=== PATIENT | male | born 1955 | race Caucasian/White ===

== ENCOUNTER 2022-07-08 09:19 | Outpatient (CLI) | payer MEDICARE, OTHER ==
[2022-07-08 10:34] LABS: #Eosinphils 0.1 10x3/uL (0.0-0.5); #Monocytes 0.4 10x3/uL (0.0-1.1); #Neutrophils 3.4 10x3/uL (1.5-8.4); %Basophils 0.2 % (0.0-2.0); %Eosinophils 1.1 % (0.0-6.0); %Lymphocytes 31.4 % (18.0-47.0); %Monocytes 7.4 % (0.0-10.0); %Neutrophils 59.7 % (40.0-75.0); Hemoglobin 13.9 g/dL (13.5-17.5); Mean Corpuscular HGB CONC 31.7 g/dL (32.0-36.0); Mean Corpuscular Hemoglobin 27.3 pg (27.0-33.0); Mean Corpuscular Volume 85.9 fl (81.2-95.1); Mean Platelet Volume 10.4 fl (7.4-10.4); Platelet Count 213 10x3/uL (150-450); RBC Distribution Width 11.9 % (11.5-14.5); White Blood Cell (WBC) Count 5.7 10x3/uL (3.5-10.5)
== END 2022-07-08 09:20 | disposition home or self-care (01) ==
LOC: LABBT 09:19
PROVIDERS: ATTEND Orthopaedic Surgery Hand Surgery
DX: Z01.818 Encounter for other preprocedural examination (principal); M72.0 Palmar fascial fibromatosis [Dupuytren]
CPT/HCPCS: 85025; 93005; 93010

== ENCOUNTER 2022-07-10 10:02 | Day surgery (SDC) | payer MEDICARE, OTHER ==
[2022-07-08 09:59] VITALS: BMI 24.3
[2022-07-10] MEDS ORDERED: Bacitracin Zinc Ointment 30 gm TUBE ONE (12:16)
[2022-07-10] MEDS ORDERED: Bupivacaine PF 0.5% 30 ML VIAL ONE (12:16)
[2022-07-10] MEDS ORDERED: CEFAZOLIN 2 GM VIAL ONE (13:41)
[2022-07-10] MEDS ORDERED: Sodium Chloride 0.9% 100 ML ONE (13:41)
[2022-07-10] MEDS ORDERED: fentaNYL PF 100 MCG/2 ML SYRINGE ONE (13:45)
[2022-07-10] MEDS ORDERED: Dexmedetomidine 200 MCG/2 ML VIAL ONE (13:45)
[2022-07-10] MEDS ORDERED: Ondansetron PF 4 MG/2 ML Vial ONE (14:00)
[2022-07-10] MEDS ORDERED: PROPOFOL 200 MG/20 ML VIAL ONE (14:00)
[2022-07-10] MEDS ORDERED: ePHEDrine Sulfate 50 MG/10 ML VIAL ONE (14:00)
[2022-07-10] MEDS ORDERED: Betamet Acet/Betamet Na Ph 30 MG/5 ML VIAL ONE (14:26)
[2022-07-10] MEDS ORDERED: Ketorolac Tromethamine 30 MG/ML VIAL ONE (15:38)
== END 2022-07-10 16:48 | disposition home or self-care (01) ==
LOC: SDC 10:02
PROVIDERS: ATTEND Orthopaedic Surgery Hand Surgery
PROC: 0JNK0ZZ Release Left Hand Subcutaneous Tissue and Fascia, Open Approach (ICD-10-PCS; principal; 2022-07-10)
DX: M72.0 Palmar fascial fibromatosis [Dupuytren] (principal); L91.8 Other hypertrophic disorders of the skin; E78.5 Hyperlipidemia, unspecified; K21.9 Gastro-esophageal reflux disease without esophagitis; Z87.891 Personal history of nicotine dependence; Z79.899 Other long term (current) drug therapy
CPT/HCPCS: 88304; J0702; J1885; J2405; J2704; J3490; S0020

== ENCOUNTER 2025-02-09 10:49 | Outpatient (CLI) | payer MEDICARE, OTHER ==
[2025-02-09 11:47] LABS: #Basophils 0.03 10x3/uL (0.0-0.2); #Eosinophils 0.08 10x3/uL (0.0-0.7); #Monocytes 0.54 10x3/uL (0.11-0.59); #Neutrophils 4.70 10x3/uL (1.40-6.50); %Basophils 0.4 % (0.0-1.0); %Eosinophils 1.0 % (0.0-10.0); %Lymphocytes 31.9 % (21.0-51.0); %Monocytes 6.8 % (0.0-10.0); %Neutrophils 59.6 % (42.0-75.0); Hematocrit 43.4 % (42.0-52.0); Hemoglobin 13.9 g/dL (14.0-18.0); Mean Corpuscular Hemoglobin 27.8 pg (27.0-31.0); Mean Corpuscular Volume 86.8 fL (78.0-98.0); Platelet Count 199 10x3/uL (130-400); Red Blood Cell (RBC) Count 5.00 mill/uL (4.70-6.10); White Blood Cell (WBC) Count 7.89 10x3/uL (4.8-10.8)
== END 2025-02-09 10:50 | disposition home or self-care (01) ==
LOC: LABBT 10:49
PROVIDERS: ATTEND Orthopaedic Surgery Hand Surgery
DX: Z01.812 Encounter for preprocedural laboratory examination (principal); M67.432 Ganglion, left wrist
CPT/HCPCS: 84550; 85025

== ENCOUNTER 2025-02-13 10:26 | Day surgery (SDC) | payer MEDICARE, OTHER ==
[2025-02-09 11:19] VITALS: BMI 24.0
[2025-02-13] MEDS ORDERED: fentaNYL PF 100 MCG/2 ML SYRINGE ONE ×2 (10:43→12:42)
[2025-02-13] MEDS ORDERED: Lidocaine 1% PF 5 ML VIAL ONE (10:43)
[2025-02-13] MEDS ORDERED: Ondansetron PF 4 MG/2 ML Vial ONE (10:43)
[2025-02-13] MEDS ORDERED: Bacitracin Zinc Ointment 30 gm TUBE ONE (10:52)
[2025-02-13] MEDS ORDERED: PROPOFOL 200 MG/20 ML VIAL ONE (11:50)
== END 2025-02-13 14:50 | disposition home or self-care (01) ==
LOC: SDC 10:26
PROVIDERS: ATTEND Orthopaedic Surgery Hand Surgery
PROC: 01Q40ZZ Repair Ulnar Nerve, Open Approach (ICD-10-PCS; principal; 2025-02-13)
PROC: 01Q50ZZ Repair Median Nerve, Open Approach (ICD-10-PCS; 2025-02-13)
PROC: 0JBH0ZZ Excision of Left Lower Arm Subcutaneous Tissue and Fascia, Open Approach (ICD-10-PCS; 2025-02-13)
PROC: 0LB80ZZ Excision of Left Hand Tendon, Open Approach (ICD-10-PCS; 2025-02-13)
DX: D17.22 Benign lipomatous neoplasm of skin and subcutaneous tissue of left arm (principal); M67.432 Ganglion, left wrist; E78.5 Hyperlipidemia, unspecified; K21.9 Gastro-esophageal reflux disease without esophagitis; Z98.890 Other specified postprocedural states; Z79.899 Other long term (current) drug therapy
CPT/HCPCS: 25073; 26145 ×4; 64719; 64721; A6223; J1100; J2405; J2704; J3010; 88304